=== PATIENT | male | born 2000 | race Caucasian/White ===

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

== ENCOUNTER 2020-05-26 01:31 | Emergency (ER) | payer OTHER ==
[2020-05-26 02:03] VITALS: BP 121/57; PULSE 66; TEMP 98.5; BMI 29.0
== END 2020-05-26 03:27 | disposition home or self-care (01) ==
LOC: JER 01:31
PROC: 0HQGXZZ Repair Left Hand Skin, External Approach (ICD-10-PCS; principal; 2020-05-26)
DX: S61.012A Laceration without foreign body of left thumb without damage to nail, initial encounter (principal)
CPT/HCPCS: 12011-25; 99284-25

== ENCOUNTER 2020-05-29 13:42 | Emergency (ER) | payer OTHER ==
[2020-05-29 13:53] VITALS: BP 108/49; PULSE 60; BMI 30.7
== END 2020-05-29 14:46 | disposition home or self-care (01) ==
LOC: JERFT 13:42
DX: S61.012A Laceration without foreign body of left thumb without damage to nail, initial encounter (principal); Z48.02 Encounter for removal of sutures
CPT/HCPCS: 99281-25